=== PATIENT | female | born 1965 | race Caucasian/White ===

== ENCOUNTER 2017-07-23 13:18 | Emergency (ER) | payer OTHER ==
[2017-07-23] MEDS: KETOROLAC 60 MG/2 ML VIAL (J1885) IM (13:48)
[2017-07-23] MEDS: methylPREDNISolone INJ 125 MG/2 ML VIAL (J2930) IM (13:48)
== END 2017-07-23 14:13 | disposition home or self-care (01) ==
LOC: M ED 13:18
DX: M54.5 Low back pain (principal); G89.29 Other chronic pain
CPT/HCPCS: J1885

== ENCOUNTER 2017-10-19 06:58 | Day surgery (SDC) | payer OTHER ==
[2017-10-19] MEDS: NS 1,000 ML IV (07:46)
[2017-10-19] MEDS ORDERED: PROPOFOL 200 MG/20 ML VIAL As Ordered ×2 (08:31→08:41)
[2017-10-19] MEDS ORDERED: LIDOCAINE 2% INJ 100 MG/5 ML SDV (FOR ANES.) As Ordered (08:31)
[2017-10-19] MEDS ORDERED: MIDAZOLAM INJ 2 MG/2 ML VIAL (J2250) As Ordered (08:39)
== END 2017-10-19 09:18 | disposition home or self-care (01) ==
LOC: M OPP 06:58
DX: Z12.11 Encounter for screening for malignant neoplasm of colon (principal); M19.90 Unspecified osteoarthritis, unspecified site; M54.89 Other dorsalgia; N95.9 Unspecified menopausal and perimenopausal disorder
CPT/HCPCS: G0121

== ENCOUNTER → 2018-02-01 | Outpatient (CLI) | payer OTHER | LOC: M PAIN 14:00 | DX: M51.16 Intervertebral disc disorders with radiculopathy, lumbar region (principal); Z79.899 Other long term (current) drug therapy; Z79.891 Long term (current) use of opiate analgesic | CPT/HCPCS: G0463 ==

== ENCOUNTER → 2019-04-22 | Outpatient (CLI) | payer OTHER ==
[~2019-04-22] MED LIST: BONETAB PO; JOINT VITAMIN PB; LIDO5DIS41; MULT1TAB10 PO; TURM500T PO; ULTR50TA8 PO; VALI5TAB PO
--- NOTE | 2019-04-22 12:06 | REPMRS ---
Patient History The patient states she had a clinical breast exam in 2018. Patient is postmenopausal. Family history of lung cancer in maternal grandfather. Digital Mammo Diagnostic Bilateral: April 22, 2019 - Exam #: [id number] Bilateral CC and MLO view(s) were taken. Technologist: Sharda Fitzgerald, Technologist Prior study comparison: January 13, 2016, bilateral digital mammo screening bilat performed at [facility]. January 17, 2014, bilateral digital woman screen mammo, performed at [facility]. FINDINGS: There are scattered fibroglandular densities. There has been no change in the appearance of the mammogram from the prior studies. There is a mild amount of scattered fibroglandular density which is fairly symmetric. There is no interval development of dominant mass, architectural distortion, or grouped microcalcification suggestive of malignancy. 3-D tomosynthesis shows no additional findings. Assessment: BI-RADS/ACR category 1 mammogram. Negative Mammogram. Recommendation Routine screening mammogram of both breasts in 1 year (for women over age 40). This patient's Lifetime Breast Cancer Risk is estimated at 8.7 %. This mammogram was interpreted with the aid of an FDA-approved computer-aided dectection system. Electronically Signed By: Swapnil Owens MD 04/22/19 [id number]
== END ==
LOC: M RAD 11:14
PROVIDERS: ATTEND Nurse Practitioner Family
DX: N64.52 Nipple discharge (principal)
CPT/HCPCS: 77066; G0279

== ENCOUNTER → 2019-11-19 | Outpatient (REF) | payer OTHER | LOC: M LAB REF 12:03 | PROVIDERS: ATTEND Physician Assistant | DX: R30.0 Dysuria (principal) ==